=== PATIENT | male | born 1935 | race Caucasian/White ===

== ENCOUNTER → 2016-09-27 | Outpatient (CLI) | payer MEDICARE, OTHER ==
[2016-09-28 03:08] LABS: HEMOGLOBIN A1C 7.5 % (4.8-5.6)
== END | disposition home or self-care (01) ==
LOC: SPEC 11:35
PROVIDERS: ATTEND Internal Medicine
DX: E11.9 Type 2 diabetes mellitus without complications (principal); Z79.4 Long term (current) use of insulin
CPT/HCPCS: 36415; 83036

== ENCOUNTER → 2017-08-22 | Outpatient (CLI) | payer MEDICARE, OTHER ==
[2017-08-23 03:10] LABS: HEMOGLOBIN A1C 6.9 % (4.8-5.6)
== END | disposition home or self-care (01) ==
LOC: LAB 13:22
PROVIDERS: ATTEND Internal Medicine
DX: E11.9 Type 2 diabetes mellitus without complications (principal); Z79.4 Long term (current) use of insulin
CPT/HCPCS: 36415; 83036

== ENCOUNTER → 2018-07-02 | Outpatient (CLI) | payer MEDICARE, OTHER ==
[2018-07-03 00:08] LABS: HEMOGLOBIN A1C 7.7 % (4.8-5.6)
== END | disposition home or self-care (01) ==
LOC: LAB 09:51
PROVIDERS: ATTEND Internal Medicine
DX: E11.9 Type 2 diabetes mellitus without complications (principal); Z79.4 Long term (current) use of insulin
CPT/HCPCS: 36415; 83036

== ENCOUNTER → 2018-07-02 | Outpatient (CLI) | payer MEDICARE, OTHER ==
[2018-07-02 10:37] LABS: ALBUMIN 3.1 g/dL (3.4-5.0); CALCIUM 8.8 mg/dL (8.5-10.1); DIRECT BILIRUBIN 0.2 mg/dL (0.0-0.2); GFR 71.2; POTASSIUM 4.3 mmol/L (3.5-5.1); TOTAL BILIRUBIN 0.6 mg/dL (0.2-1.0); TOTAL PROTEIN 6.6 g/dL (6.4-8.2)
== END | disposition home or self-care (01) ==
LOC: LAB 09:04
PROVIDERS: ATTEND Internal Medicine
DX: E11.9 Type 2 diabetes mellitus without complications (principal); E78.00 Pure hypercholesterolemia, unspecified; Z79.4 Long term (current) use of insulin
CPT/HCPCS: 36415; 80048; 80076; 82550; 83036; 83735; 84443

== ENCOUNTER → 2019-06-25 | Outpatient (CLI) | payer MEDICARE, OTHER ==
[2019-06-25 11:36] LABS: ALBUMIN/GLOBULIN RATIO 0.9 (1.0-1.7); CALCIUM 8.9 mg/dL (8.5-10.1); CREATININE 0.9 mg/dL (0.7-1.3); GFR 80.2; POTASSIUM 4.2 mmol/L (3.5-5.1); TOTAL BILIRUBIN 0.5 mg/dL (0.2-1.0); TOTAL PROTEIN 6.5 g/dL (6.4-8.2)
[2019-06-25 12:28] LABS: BASO % 0 % (0-3); EOS # 0.2 x10^3/uL (0.0-0.7); EOS % 3 % (0-3); HEMATOCRIT 35.5 % (39.0-53.0); HEMOGLOBIN 11.7 g/dL (13.0-17.5); LYMPH # 0.8 x10^3/uL (1.0-4.8); LYMPH % 13 % (24-48); MEAN CORPUSCULAR HEMOGLOBIN 30 pg (25-35); MEAN CORPUSCULAR HGB CONC 33 g/dL (31-37); MEAN CORPUSCULAR VOLUME 91 fL (79-100); MONO # 0.6 x10^3/uL (0.0-1.1); MONO % 10 % (0-9); NEUT # 4.4 x10^3uL (1.8-7.7); NEUT % 74 % (31-73); PLATELET COUNT 139 x10^3/uL (140-400); RED BLOOD COUNT 3.91 x10^6/uL (4.30-5.70); RED CELL DISTRIBUTION WIDTH 13.7 % (11.5-14.5)
[2019-06-25 13:28] LABS: CLARITY,URINE CLEAR; COLOR,URINE YELLOW; GLUCOSE,URINE 250 mg/dL (NEG)
[2019-06-25 13:29] LABS: BILIRUBIN,URINE NEG (NEG); NITRITE,URINE NEG (NEG); UROBILINOGEN,URINE 0.2 mg/dL (0.2 mg/dL)
[2019-06-25 13:30] LABS: BACTERIA,URINE FEW /HPF (0-FEW); RBC,URINE 0 /HPF (0-2); WBC,URINE 0 /HPF (0-4)
[2019-06-25 13:31] LABS: AMORPHOUS SEDIMENT,UR PRESENT /HPF
[2019-06-25 14:04] LABS: FREE T4 1.23 ng/dL (0.76-1.46); THYROID STIM HORMONE (TSH) 1.321 uIU/mL (0.358-3.740)
[2019-06-25 23:06] LABS: MICROALB RD UR 18.2 ug/mL (Not Estab.)
[2019-06-26 01:07] LABS: HEMOGLOBIN A1C 8.5 % (4.8-5.6)
== END ==
LOC: LAB 08:46
PROVIDERS: ATTEND Internal Medicine
DX: Z12.5 Encounter for screening for malignant neoplasm of prostate (principal); I48.21 Permanent atrial fibrillation; I50.22 Chronic systolic (congestive) heart failure; E78.00 Pure hypercholesterolemia, unspecified; E11.9 Type 2 diabetes mellitus without complications; K63.5 Polyp of colon; E55.9 Vitamin D deficiency, unspecified; Z79.4 Long term (current) use of insulin; Z86.73 Personal history of transient ischemic attack (TIA), and cerebral infarction without residual deficits
CPT/HCPCS: 36415; 80053; 80061; 81001; 82043; 82570; 83036; 84439; 84443; 85025; G0103

== ENCOUNTER → 2019-06-25 | Outpatient (CLI) | payer MEDICARE, OTHER | LOC: LAB 08:58 | PROVIDERS: ATTEND Internal Medicine Cardiovascular Disease | DX: I48.21 Permanent atrial fibrillation (principal); Z79.01 Long term (current) use of anticoagulants | CPT/HCPCS: 36415; 85610 ==

== ENCOUNTER → 2019-08-18 | Outpatient (CLI) | payer MEDICARE, OTHER ==
[2019-08-18 11:57] LABS: ALBUMIN/GLOBULIN RATIO 0.9 (1.0-1.7); CALCIUM 8.7 mg/dL (8.5-10.1); POTASSIUM 4.2 mmol/L (3.5-5.1); TOTAL BILIRUBIN 0.5 mg/dL (0.2-1.0); TOTAL PROTEIN 6.5 g/dL (6.4-8.2)
[2019-08-18 12:42] LABS: BASO % 1 % (0-3); EOS # 0.2 x10^3/uL (0.0-0.7); EOS % 3 % (0-3); HEMATOCRIT 34.4 % (39.0-53.0); HEMOGLOBIN 11.5 g/dL (13.0-17.5); LYMPH # 0.7 x10^3/uL (1.0-4.8); LYMPH % 13 % (24-48); MEAN CORPUSCULAR HEMOGLOBIN 30 pg (25-35); MEAN CORPUSCULAR HGB CONC 34 g/dL (31-37); MEAN CORPUSCULAR VOLUME 89 fL (79-100); MONO # 0.5 x10^3/uL (0.0-1.1); MONO % 10 % (0-9); NEUT # 3.9 x10^3uL (1.8-7.7); NEUT % 73 % (31-73); PLATELET COUNT 128 x10^3/uL (140-400); RED BLOOD COUNT 3.87 x10^6/uL (4.30-5.70); WHITE BLOOD COUNT 5.3 x10^3/uL (4.0-11.0)
[2019-08-20 13:09] LABS: ALBUM 3.1 g/dL (2.9-4.4); ALPHA 1 0.2 g/dL (0.0-0.4); ALPHA 2 0.9 g/dL (0.4-1.0); GAMMA 0.7 g/dL (0.4-1.8); IMMUNOGLOBULIN A 312 mg/dL (61-437); IMMUNOGLOBULIN G 721 mg/dL (603-1613); IMMUNOGLOBULIN M 59 mg/dL (15-143); PROTEIN TOTAL 5.9 g/dL (6.0-8.5); SPEP AG RATIO 1.1 (0.7-1.7)
== END ==
LOC: LAB 09:10
PROVIDERS: ATTEND Internal Medicine
DX: D64.9 Anemia, unspecified (principal)
CPT/HCPCS: 36415; 80053; 82607; 82728; 82746; 83540; 83550; 84165; 85025; 85045; 86334

== ENCOUNTER → 2019-09-02 | Outpatient (CLI) | payer MEDICARE, OTHER ==
[2019-09-03 01:07] LABS: HEMOGLOBIN A1C 8.5 % (4.8-5.6)
== END | disposition home or self-care (01) ==
LOC: LAB 11:16
PROVIDERS: ATTEND Internal Medicine
DX: E11.9 Type 2 diabetes mellitus without complications (principal); Z79.4 Long term (current) use of insulin
CPT/HCPCS: 36415; 83036

== ENCOUNTER → 2019-11-11 | Outpatient (CLI) | payer MEDICARE, OTHER | END | disposition home or self-care (01) | LOC: LAB 10:42 | PROVIDERS: ATTEND Internal Medicine Cardiovascular Disease | DX: I48.21 Permanent atrial fibrillation (principal); Z79.01 Long term (current) use of anticoagulants | CPT/HCPCS: 36415; 85610 ==

== ENCOUNTER 2020-01-19 10:47 | Emergency (ER) | payer MEDICARE, OTHER ==
[~2020-01-19] VITALS: Ht 180.3 cm; Wt 86.4 kg
[2020-01-19] MEDS ORDERED: ACETAMINOPHEN 325 MG TABLET PO ONE ×3 (11:00→16:15)
--- NOTE | 2020-01-19 11:00 | PHYS DOC ---
Past History Past Medical History: A-Fib Smoking: Non-smoker Alcohol Use: None Drug Use: None Adult General Chief Complaint Chief Complaint: MECHANICAL FALL HPI HPI Patient is a 84-year-old male who presents for right lower extremity pain. Patient reports parking at our ER facility and was coming in for routine outpatient labs. Was attempting to extricate from car, was not using cane, and tripped over his feet having a mechanical fall. Patient reports twisting awkwardly with his planted right lower extremity and hearing a pop prior to falling into the door and subsequently hitting the ground with his right elbow. He did not hit his head, no loss of consciousness. This fall was observed by our healthcare providers out front and patient was subsequently retrieved and brought to our ER by evaluation immediately. On arrival, patient reports acute pain to both medial and lateral portions of his right ankle. Patient reports decreased range of motion due to pain but has complete motor, sensory, and neurovascularly intact. No saddle anesthesia or abnormal paresthesias per baseline. He also reports right elbow pain at this time, nonradiating in nature, reports suffering x1 fall in past 1 month and unsure if this is residual pain from old or fall or fall today. He is on warfarin for atrial fibrillation Review of Systems Review of Systems Fourteen body systems of review of systems have been reviewed. See HPI for pertinent positives and negative responses, other infante all other systems are negative, non-pertinent or non-contributory Physical Exam Physical Exam Constitutional: Pt is oriented to person, place, and time. Pt appears well- developed and well-nourished. HENT: Head: Normocephalic and atraumatic. Mouth/Throat: Oropharynx is clear and dry No hematomas or lacerations or abrasions to face or scalp OP clear, no blood, no malocclusion, dentition intact Nares clear, no nasal septal hematoma External ears unremarkable, no lynn sign Midface stable Eyes: Conjunctivae and EOM are normal. Pupils are equal, round, and reactive to light. Neck: C-spine midline nontender, no step-offs Cardiovascular: Normal rate, irregular rhythm and normal heart sounds. Pulmonary/Chest: Effort normal and breath sounds normal. No respiratory distress. No wheezes. CTA bilaterally Abdominal: Soft. Bowel sounds are normal. Pt exhibits no distension. There is no tenderness. Musculoskeletal: Bandini tenderness present to bilateral malleoli's of right ankle, decreased range of motion in all planes of motion due to pain. Patient able to plantar and dorsiflex against pain without issue, sensory function to bilateral lower extremities intact, 2+ patellar reflexes, omitted right Achilles reflex due to pain in ankle. Positive [place] ankle rule Chest wall stable Pelvis stable and non-tender No vertebral TTP and spine without stepoffs Neurological: Pt is alert and oriented to person, place, and time. Moving all extremities willfully, able to wiggle all fingers and toes Alert and oriented x 3 Sensation grossly intact Skin: Skin is warm and dry. No significant abrasions, no lacerations Psychiatric: Behavior is appropriate for situation Nursing note and vitals reviewed. Current Patient Data Vital Signs Vital Signs Date Time Temp Pulse Resp B/P (MAP) Pulse Ox O2 Delivery O2 Flow Rate FiO2 01/19/20 10:47 96.6 63 18 94/41 (58) 94 Room Air EKG EKG [] Radiology/Procedures Radiology/Procedures PROCEDURE: ELBOW RIGHT 3V STUDY DATE: 01/19/2020 CLINICAL INDICATION / HISTORY: Reason: FALL / Spl. Instructions: / History: . TECHNIQUE: Right Elbow 3 views COMPARISON: None FINDINGS: Two views of the right elbow demonstrate no evidence of fracture, subluxation, or dislocation. Soft tissues show mild prominence of the anterior fat pad and arterial calcifications, suggesting possible small right elbow joint effusion.. IMPRESSION: Possible small right elbow joint effusion without obvious fracture. Correlate clinically. Electronically signed by: Lili Wilson MD (01/19/2020 1:00 PM) [id number] PROCEDURE: ANKLE RIGHT 3V ANKLE RIGHT 3V 01/19/2020 11:31 AM INDICATION: Right medial malleolus pain COMPARISON: None available. TECHNIQUE: 3 views of the right ankle are provided. FINDINGS/ IMPRESSION: 1. There is an obliquely oriented fracture involving the distal fibular diaphysis with extension to the ankle mortise. Distal fracture fragment measures 7.6 cm. 2. Linear ossific fragment along the medial malleolus measures 1.6 cm and could reflect an avulsion fracture. Diffuse soft tissue swelling is present. 3. Vascular calcifications are present. Electronically signed by: Bonnie Rodriguez MD (01/19/2020 12:08 PM) [id number] Heart Score HEART Score for Chest Pain: HEART Score for Chest Pain Response (Comments) Value History Slighlty/Non-Suspicious 0 ECG Normal 0 Age > 65 2 Risk Factors >3 Risk Factors or Hx CAD 2 Total 4 Risk Factors: Risk Factors: DM, Current or recent (<one month) smoker, HTN, HLP, family history of CAD, obesity. Risk Scores: Risk Factors: DM, Current or recent (<one month) smoker, HTN, HLP, family history of CAD, obesity. Course & Med Decision Making Course & Med Decision Making Pertinent Labs and Imaging studies reviewed. (See chart for details) Discussed diagnosis of right lower extremity fracture Orthopedic surgeon at [facility] initially contacted who agreed to transfer for surgical fixation but patient reports having family working at [facility] and wanting to be transferred there instead. Case was discussed with transferring team at [facility] and patient was ultimately accepted under the care of Dr. Isak Rose for further management Patient updated on plan of care, he was agreeable to transfer via ambulance for higher acuity of care. Pain well controlled throughout ER visit, no further recommendations provided prior to departure All questions and concerns addressed prior to ER departure to [facility] in stable condition Luan Disclaimer Dragseverino Disclaimer This electronic medical record was generated, in whole or in part, using a voice recognition dictation system. Departure Departure: Impression: Primary Impression: Fracture of ankle, right, closed Disposition: ADMITTED INPT THIS HOSP ([facility]) Admitting Physician: Other (Dr. Isak Rose) Condition: STABLE Referrals: TORREY RODGERS MD (PCP) Additional Instructions: Right lower extremity radiograph impressions: Obliquely oriented fracture involving the distal fibular diaphysis with extension to the ankle mortise. Distal fracture fragment measures 7.6 cm. Linear ossific fragment along the medial malleolus measures 1.6 cm and could reflect an avulsion fracture. Diffuse soft tissue swelling is present VIRGINIA CHEATHAM DO Jan 19, 2020 11:00
--- NOTE | 2020-01-19 12:11 | RAD ---
ANKLE RIGHT 3V 01/19/2020 11:31 AM INDICATION: Right medial malleolus pain COMPARISON: None available. TECHNIQUE: 3 views of the right ankle are provided. FINDINGS/ IMPRESSION: 1. There is an obliquely oriented fracture involving the distal fibular diaphysis with extension to the ankle mortise. Distal fracture fragment measures 7.6 cm. 2. Linear ossific fragment along the medial malleolus measures 1.6 cm and could reflect an avulsion fracture. Diffuse soft tissue swelling is present. 3. Vascular calcifications are present. Electronically signed by: Bonnie Rodriguez MD (01/19/2020 12:08 PM) [id number]
--- NOTE | 2020-01-19 13:03 | RAD ---
PROCEDURE: ELBOW RIGHT 3V STUDY DATE: 01/19/2020 CLINICAL INDICATION / HISTORY: Reason: FALL / Spl. Instructions: / History: . TECHNIQUE: Right Elbow 3 views COMPARISON: None FINDINGS: Two views of the right elbow demonstrate no evidence of fracture, subluxation, or dislocation. Soft tissues show mild prominence of the anterior fat pad and arterial calcifications, suggesting possible small right elbow joint effusion.. IMPRESSION: Possible small right elbow joint effusion without obvious fracture. Correlate clinically. Electronically signed by: Lili Wilson MD (01/19/2020 1:00 PM) [id number]
[2020-01-19 16:05] VITALS: BP 128/65
== END 2020-01-19 16:05 | disposition admitted as inpatient to this hospital (09) ==
LOC: ER 10:47
DX: S82.51XA Displaced fracture of medial malleolus of right tibia, initial encounter for closed fracture (principal); M25.521 Pain in right elbow; I48.91 Unspecified atrial fibrillation; W01.0XXA Fall on same level from slipping, tripping and stumbling without subsequent striking against object, initial encounter; Y93.89 Activity, other specified; Y92.481 Parking lot as the place of occurrence of the external cause; Y99.8 Other external cause status
CPT/HCPCS: 73080; 73610; 99284